=== PATIENT | male | born 1970 | race African-American/Black ===

== ENCOUNTER 2022-01-11 09:14 | Emergency (ER) | payer MEDICAID ==
[~2022-01-11] VITALS: Ht 185.4 cm; Wt 82.0 kg
[2022-01-11 10:18] VITALS: BP 158/94
[2022-01-11] MEDS ORDERED: TOPUD PO (10:52)
== END 2022-01-11 20:45 | disposition home or self-care (01) ==
LOC: ER 09:28
DX: M25.552 Pain in left hip (principal); E11.9 Type 2 diabetes mellitus without complications; I10 Essential (primary) hypertension; G40.909 Epilepsy, unspecified, not intractable, without status epilepticus; F84.0 Autistic disorder
CPT/HCPCS: 72170; 73551; 73590; 99284